=== PATIENT | male | born 1945 | race Caucasian/White ===

== ENCOUNTER 2018-12-13 13:28 | Inpatient (IN) | payer MEDICARE, SELFPAY ==
[2018-12-13 13:36] VITALS: BP 143/88; PULSE 73; RESP 18; TEMP 36.7; O2SAT 98; BMI 23.4
--- NOTE | 2018-12-13 14:00 | ED_ITS ---
HPI - Fall General Chief Complaint: Fall Stated Complaint: Fall,back pain and rt arm Time Seen by Provider: 12/13/18 13:51 Source: patient Mode of arrival: ambulatory Limitations: no limitations History of Present Illness HPI Narrative: Patient is a 73-year-old male here for evaluation of an injury that he sustained prior to arrival here in the emergency department. He stated that he was reaching up to pull the string on a fan to turn on the light where he stated that he lost his balance and fell back hitting his left side of his back on the corner of the bed. He is not on anticoagulation. He states that he did not hit his head or lose consciousness. He complains of pain along his back on the left side. Also has right shoulder pain. Related Data Allergies Allergy/AdvReac Type Severity Reaction Status Date / Time No Known Drug Allergies Allergy Verified 12/13/18 13:36 Review of Systems Constitutional Denies fatigue, Denies fever(s), Denies frequent falls and Denies headache(s) ENT Ears, Nose, Mouth, and Throat: Denies headache(s) Cardiovascular Denies chest pain, Denies edema, Denies palpitations and Denies dyspnea Respiratory Denies cough and Denies dyspnea Gastrointestinal Gastrointestinal: Denies abdominal pain, Denies nausea and Denies vomiting Genitourinary Denies dysuria Musculoskeletal Reports back pain and Reports arthralgias (Right shoulder) Integumentary/Breasts Comments: Bruising over his left flank Neurologic Denies behavioral changes, Denies frequent falls and Denies headache(s) Psychiatric Denies behavioral changes Endocrine Denies fatigue and Denies palpitations Hematologic/Lymphatic Denies easy bleeding and Denies easy bruising Allergic/Immunologic Denies urticaria Exam Initial Vital Signs Initial Vital Signs: Vital Signs Temperature 98.1 F 12/13/18 13:36 Pulse Rate 73 12/13/18 13:36 Respiratory Rate 18 12/13/18 13:36 Blood Pressure 143/88 H 12/13/18 13:36 Pulse Oximetry 98 12/13/18 13:36 Const General: cooperative, healthy appearing, well developed, well groomed and No acute distress Orientation: alert, awake and oriented x3 HENMT Head: normal to inspection and normocephalic Resp Effort & Inspection: normal respiratory effort Auscultation: clear to auscultation bilaterally Cardio Rate: regular rate Rhythm: regular rhythm Pulses: radial pulses present GI Inspection: non-distended Palpation: soft, No firm and No tender Back/Spine/Pelvis Other: Patient with a 10 cm irregular bruise over his left flank. No breaks in the skin. Does have crepitus underlying the area. Skin Other: Bruising over his left flank Neuro General: alert, awake and oriented x3 Extrem General: normal to inspection and capillary refill normal Psych Appearance: grossly normal and well kempt [facility] Medical History Healthy adult (Acute) Social History Smoking Status: Former smoker Social History Smoking Status: Former smoker Scores GCS Kali coma scale eye opening: Spontaneous Kali coma scale verbal response: Orientated Kali coma scale motor response: Obey commands [place] coma scale total score: 15 Nexus Score for C-Spine Focal Neurologic deficit present: No Midline spinal tenderness present: No Altered level of conciousness present: No Intoxication present: No Distracting Injury Present: No Nexus Criteria for C-spine: 0 Course Orders Ordered: ED Orders 12/13/18 14:15 Complete Blood Count AUTO DIFF Stat Comprehensive Metabolic Panel Stat Lipase Stat Partial Thromboplastin Time Stat Prothrombin Time INR Stat 12/13/18 14:33 XR shoulder RT min 2V Stat 12/13/18 14:50 CT chest abd pel w con Stat Discontinued Medications Sodium Chloride (Normal Saline 0.9%) 1,000 mls @ 1,000 mls/hr IV BOLUS ONE Stop: 12/13/18 15:04 Last Admin: 12/13/18 15:12 Dose: 1,000 mls/hr Vital Signs - 8 hr 12/13/18 13:36 Temperature 98.1 F Pulse Rate 73 Respiratory Rate 18 Blood Pressure 143/88 H Pulse Oximetry 98 MDM - Fall Lab Data Attestation: I reviewed the patient's lab results. Result diagrams: 12/13/18 14:15 12/13/18 14:15 Lab Results 12/13/18 12/13/18 12/13/18 Range/Units 14:15 14:15 14:15 WBC 13.6 H (4.5-11.0) X10^3/uL RBC 5.07 (4.5-5.9) X10^6/uL Hgb 16.6 (13.5-17.5) g/dL Hct 49.0 (41-53) % MCV 96.6 (80-100) fL MCH 32.7 (26-34) PG MCHC 33.9 (30-36) % RDW 13.2 (11.6-14.8) % Plt Count 165 (150-400) X10^3/uL Neut % (Auto) 89.2 H (50-75) % Lymph % (Auto) 4.4 L (25-40) % [place] % (Auto) 6.2 (3-14) % Eos % (Auto) 0.0 L (2-4) % Baso % (Auto) 0.2 (0-2) % Neut # (Auto) 03612 H (1530-6391) /uL Lymph # (Auto) 600 L (9387-6222) /uL [place] # (Auto) 800 (0-900) /uL Eos # (Auto) 0 (0-450) /uL Baso # (Auto) 0 (0-100) /uL PT 11.2 (10.1-12.7) SECONDS INR 1.0 (0.9-1.3) APTT 29 (26.4-36.2) SECONDS Sodium 139 (137-145) mmol/L Potassium 4.2 (3.4-5.1) mmol/L Chloride 102 (98-107) mmol/L Carbon Dioxide 28 (22-32) mmol/L BUN 24 H (9-20) mg/dL Creatinine 1.10 (0.66-1.25) mg/dL Estimated GFR > 60.0 (>60) mL/min BUN/Creatinine Ratio 21.8 (6-22) Glucose 147 H (80-110) mg/dL Calcium 9.2 (8.4-10.2) mg/dL Total Bilirubin 0.5 (0.2-1.3) mg/dL AST 32 (17-59) IU/L ALT 35 (21-72) IU/L Alkaline Phosphatase 66 (38-126) U/L Total Protein 7.5 (6.3-8.2) g/dL Albumin 4.4 (3.5-5.0) g/dL Globulin 3.1 (1.7-4.1) g/dL Albumin/Globulin Ratio 1.4 (1.0-2.8) Lipase 60 (23-300) U/L Urine Dip Bedside Urine Glucose Negative Bedside Urine Bilirubin - Negative Bedside Urine Ketone - Negative Urine Specific [place] 1.015 Bedside Urine Occult Blood - Negative Bedside Urine pH 6.0 Bedside Urine Protein - Negative Bedside Urine Urobilinogen - Negative Bedside Urine Nitrite - Negative Bedside Urine Leukocytes - Negative Esterase Imaging Data X-ray shoulder: Radiologist's impression: Patient: Luis A Kimbrough#: [id number] : 6Acct:[id number] Age/Sex: 73 / MDate of Service: 12/13/18 Loc: ED Accession Number: [id number] Procedure: XR shoulder RT min 2V Ordering Provider: Hill Nielson D.O. PROCEDURE: XR SHOULDER RT MIN 2V INDICATIONS: Pain after fall TECHNIQUE: 2 views of the shoulder were acquired. COMPARISON: None. FINDINGS: Bones: No fractures or dislocations. No suspicious bony lesions. Visualized ribs appear intact. Mild glenohumeral and acromioclavicular joint osteoarthritis. Soft tissues: No suspicious soft tissue calcifications. IMPRESSION: No fracture. No osseous lesion. If symptoms and/or clinical suspicion for pathology persists, further assessment with repeat radiographs (7-10 days) or advanced imaging (e.g. CT, MRI or bone scan) may be helpful. Dictated by: Monse Muller MD, PhD on 12/13/2018 at 15:24 Approved by: Monse Muller MD, PhD on 12/13/2018 at 15:24 CT chest abdomen pelvis: Radiologist's impression: Report that I received over the phone Left-sided pneumothorax, left-sided hemothorax, left-sided 9,10,11,12 rib fractures MDM Narrative Medical decision making narrative: Patient not in any respiratory distress, did not want any pain medication. Right shoulder shows no signs of bony injury. Patient does have injuries to his left thorax. Patient was placed on 100% O2 by nasal cannula. The exact size of the pneumothorax was not express to me by the radiologist at the time of admission however I feel that it is less than 20%. Will hold on chest tube for now. Discussed the case with Dr. Villa with General surgery who will admit for further evaluation and treatment. Discuss the admission with the patient who expressed understanding and agreement. Discharge Plan Departure Patient Disposition: Admitted As Inpatient Clinical Impression: Pneumothorax on left, Hemothorax on left Multiple rib fractures Qualifiers: Encounter type: initial encounter Fracture type: closed Laterality: left Qualified Code(s): S22.42XA - Multiple fractures of ribs, left side, initial encounter for closed fracture Fall Qualifiers: Encounter type: initial encounter Qualified Code(s): W19.XXXA - Unspecified fall, initial encounter Contusion Qualifiers: Encounter type: initial encounter Contusion area: lower back Qualified Code(s): S30.0XXA - Contusion of lower back and pelvis, initial encounter Admit Date/Time: 12/13/18 15:57 Admit Provider: Shamika Villa
[2018-12-13 14:24] LABS: Add Manual Diff / Slide Review NO; Basophils Absolute Auto 0 /uL (0-100); Basophils Percent Auto 0.2 % (0-2); Eosinophils Absolute Auto 0 /uL (0-450); Hemoglobin 16.6 g/dL (13.5-17.5); Lymphocytes Absolute Auto 600 /uL (1100-4500); Lymphocytes Percent Auto 4.4 % (25-40); Mean Corpuscular HGB Conc 33.9 % (30-36); Mean Corpuscular Hemoglobin 32.7 PG (26-34); Mean Corpuscular Volume 96.6 fL (80-100); Monocytes Absolute Auto 800 /uL (0-900); Monocytes Percent Auto 6.2 % (3-14); Neutrophils Absolute Auto 12100 /uL (1500-7000); Neutrophils Percent Auto 89.2 % (50-75); Platelet Count 165 X10^3/uL (150-400); Red Blood Cell Count 5.07 X10^6/uL (4.5-5.9); Red Cell Distribution Width 13.2 % (11.6-14.8); White Blood Cell Count 13.6 X10^3/uL (4.5-11.0)
--- NOTE | 2018-12-13 14:33 | DI.RAD.S_ITS ---
PROCEDURE: XR SHOULDER RT MIN 2V INDICATIONS: Pain after fall TECHNIQUE: 2 views of the shoulder were acquired. COMPARISON: None. FINDINGS: Bones: No fractures or dislocations. No suspicious bony lesions. Visualized ribs appear intact. Mild glenohumeral and acromioclavicular joint osteoarthritis. Soft tissues: No suspicious soft tissue calcifications. IMPRESSION: No fracture. No osseous lesion. If symptoms and/or clinical suspicion for pathology persists, further assessment with repeat radiographs (7-10 days) or advanced imaging (e.g. CT, MRI or bone scan) may be helpful. Dictated by: Monse Muller MD, PhD on 12/13/2018 at 15:24 Approved by: Monse Muller MD, PhD on 12/13/2018 at 15:24
[2018-12-13 14:35] LABS: Prothrombin Time 11.2 SECONDS (10.1-12.7)
[2018-12-13 14:38] LABS: PTT Partial Thromboplastin Tim 29 SECONDS (26.4-36.2)
[2018-12-13 14:40] LABS: Alanine Aminotransferase 35 IU/L (21-72); Albumin 4.4 g/dL (3.5-5.0); Albumin Globulin Ratio 1.4 (1.0-2.8); Alkaline Phosphatase 66 U/L (38-126); Aspartate Aminotransferase 32 IU/L (17-59); BUN Creatinine Ratio 21.8 (6-22); Bilirubin Total 0.5 mg/dL (0.2-1.3); Blood Urea Nitrogen 24 mg/dL (9-20); Calcium 9.2 mg/dL (8.4-10.2); Carbon Dioxide 28 mmol/L (22-32); Chloride 102 mmol/L (98-107); Estimated Glomerular Filt Rate > 60.0 mL/min (>60); Globulin 3.1 g/dL (1.7-4.1); Glucose 147 mg/dL (80-110); HEMOLYSIS 19 (0-50); Lipase 60 U/L (23-300); Potassium 4.2 mmol/L (3.4-5.1); Sodium 139 mmol/L (137-145); Total Protein 7.5 g/dL (6.3-8.2)
--- NOTE | 2018-12-13 14:50 | DI.CT.S_ITS ---
PROCEDURE: CT CHEST ABD PEL W CON INDICATIONS: fall Left low back hematoma with crepitus TECHNIQUE: After the administration of intravenous contrast, 5 mm thick sections acquired from the lung apices to the symphysis. 2.5 mm thick coronal and sagittal reformats were acquired. Additional 7 mm thick coronal maximum intensity projection (MIP) reformats acquired through the lungs. Optional 10-minute delayed imaging may be performed from the kidneys to the bladder. For radiation dose reduction, the following was used: automated exposure control, adjustment of mA and/or kV according to patient size. COMPARISON: [facility], CR, XR SHOULDER RT MIN 2V, 12/13/2018, 14:39. FINDINGS: Image quality: CHEST: Lungs: There is trace left apical pneumothorax. Mild pulmonary contusion and atelectasis in the left lower lobe. There is a small left hemothorax. Central and peripheral airways appear patent and normal in caliber. Mediastinum: No mediastinal hematomas. Heart size is normal. No pericardial effusion. Thoracic aorta and pulmonary arteries demonstrate normal size and enhancement. No mediastinal or hilar adenopathy. Esophagus is normal in caliber. No hiatal hernia. Chest wall: There are slightly displaced left ninth, 10th, 11th and 12th rib fractures. There is subcutaneous emphysema in the left posterior and lateral lower chest wall/flank. No axillary or supraclavicular adenopathy. Thyroid gland is normal. ABDOMEN: Solid organs: There are multiple small indeterminate hepatic hypodensities. Liver is normal in size and enhancement, without lacerations. Gallbladder is normal. Biliary system is non-dilated. Pancreas enhances normally, without transection. Spleen is normal in size and enhancement, without lacerations. No adrenal hematomas. Both kidneys enhance normally, without hydronephrosis or lacerations. Peritoneum and bowel: No free fluid or air. Unenhanced bowel loops demonstrate normal wall thickness and caliber. Nodes and vessels: No retroperitoneal or mesenteric adenopathy. Aorta and inferior vena cava are normal in size and enhancement. Miscellaneous: No ventral hernias. PELVIS: Genitourinary: The bladder is distended. Bladder wall thickness is normal. Miscellaneous: No inguinal hernias or adenopathy. Bones: Pelvic ring and hip joints appear intact. No vertebral compression fractures. There is scoliosis. Degenerative changes are noted in lower thoracic and lumbar spine. IMPRESSION: 1. Trace left apical pneumothorax. 2. Small left hemothorax. 3. Multiple left rib fractures involving the left ninth, 10th, 11th and 12th ribs. There is subcutaneous emphysema in the left lower posterior chest wall/flank. 4. Multiple hepatic hypodensities are most likely cysts although many lesions are too small to further characterize, therefore, considered indeterminate. The result was discussed with Dr. Tata THOMAS prior to dictation. Dictated by: Jonatan Limon M.D. on 12/13/2018 at 15:31 Approved by: Jonatan Limon M.D. on 12/13/2018 at 18:03
[2018-12-13] MEDS: SODIUM CHLORIDE 0.9% 1,000 ML 1000 ML IV (15:12)
--- NOTE | 2018-12-13 15:15 | PC.NURSE ---
pt with tenderness to left back rib cage, Toston shaped reddened area, with swelling. On palpation of area, crepitus felt around area.
[2018-12-13 16:12] VITALS: BMI 23.4
--- NOTE | 2018-12-13 16:36 | PM.HP.1 ---
History of Present Illness Date Patient Seen: 12/13/18 Time Patient Seen: 16:36 Chief complaint: Fall,back pain and rt arm Narrative: Luis A is a pleasant and active 73-year-old gentleman who was adjusting a ceiling fan in his home earlier today when he sustained a fall. He says he lost his balance and fell with his left side onto a wooden bed frame that was about 20 in off the floor. He says it hurts so terribly that he did not think he was going to be able to get up. He said no other parts of his body sustained injury. He did not hit his head and he did not lose consciousness. He denies any neck pain. He denies any back pain. He says he feels much better than he did 3 hr ago when the accident occurred. He is concerned about how he will sleep tonight. He does not take any medication at home but has recently been using a marijuana formulation that relaxes him and helped him to get good sleep. He says he has struggled with getting sleep for the last 25 years if not longer. He denies any difficulty breathing right now. He says his pain is not unbearable but it is definitely sharp and his whole body feels sore. He is also concerned about a pain in his right shoulder. He says this is not a new occurrence. For some time now, when he lies on his right shoulder he feels a stabbing sensation and he gets a pain shooting through his armpit area and toward his back. He would like to have that addressed in some fashion while he is here. He tells me that he has had bone spurs removed in the past and he wonders if it might be a bone spur. Patient History Medical History Healthy adult (Acute) Social History Smoking Status: Former smoker Family & Social History Safety & Behavioral: Feels Safe in Current Yes Environment Been Physically Hurt or No Threatened By a Person Tobacco & Substance use: Smoking Status Former smoker Substance Use Type marijuana Meds Home Medications Medication Instructions Recorded Confirmed Type Bone-Up 1 tab PO BID 12/13/18 12/13/18 History Thymus Multivitamin 1 tab PO BID 12/13/18 12/13/18 History glucosamine-chondroitin 1 tab PO BID 12/13/18 12/13/18 History mv,Ca,bpd-rrmg-OG-lycopene 1 tab PO BID 12/13/18 12/13/18 History [Spectravite Men's] Allergies Allergy/AdvReac Type Severity Reaction Status Date / Time No Known Drug Allergies Allergy Verified 12/13/18 13:36 Review of Systems Review of Systems All systems reviewed & are unremarkable except as noted in HPI and below Exam Vital Signs (past 8 hours): - 12/13/18 13:36 Temperature 98.1 F Pulse Rate 73 Respiratory Rate 18 Blood Pressure 143/88 H Pulse Oximetry 98 Oxygen Delivery Method Room Air Narrative Exam Narrative: Well-nourished well-developed gentleman who is sitting up on the stretcher with some left-sided chest splinting. He is holding his left arm on the stretcher to keep his left chest from moving. He acts much younger than his stated age. HEENT: Normocephalic and atraumatic, pupils equal round and reactive to light accommodation with anicteric sclera no midface instability no evidence of midface trauma no bruising. Neck: Nontender to palpation. No bruising. No significantly enlarged cervical or supraclavicular adenopathy Lungs: Clear on the right side. On the left there is a 10-12 cm hematoma developing in the left flank. In this region there is also some very slight crepitance and significant tenderness to palpation. He does have air movement on the left side but there is some decreased with comparison to the right. No wheezing and no rales on either side. Abdomen: Soft, nontender, active bowel sounds. Extremities: All are warm and well perfused. Examination of his hands is notable for 2 bloody lesions at the base of each thumb. He says he developed these last weekend while raking the yd ?at the club?. He says he forgot his gloves that day. They are not hurting him and he says they are of no consequence. 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 Significantly decreased range of motion on the left side secondary to chest pain. Decreased range of motion in the right shoulder due to pain with any movement. He can't localize it to abduction or adduction but he says he has a shooting pain through his axilla. Easily palpable pulses. Objective Labs Result Diagrams: 12/13/18 14:15 12/13/18 14:15 Labs: Laboratory Results - last 24 hr 12/13/18 12/13/18 12/13/18 14:15 14:15 14:15 WBC 13.6 H RBC 5.07 Hgb 16.6 Hct 49.0 MCV 96.6 MCH 32.7 MCHC 33.9 RDW 13.2 Plt Count 165 Neut % (Auto) 89.2 H Lymph % (Auto) 4.4 L [place] % (Auto) 6.2 Eos % (Auto) 0.0 L Baso % (Auto) 0.2 Neut # (Auto) 97591 H Lymph # (Auto) 600 L [place] # (Auto) 800 Eos # (Auto) 0 Baso # (Auto) 0 PT 11.2 INR 1.0 APTT 29 Sodium 139 Potassium 4.2 Chloride 102 Carbon Dioxide 28 BUN 24 H Creatinine 1.10 Estimated GFR > 60.0 BUN/Creatinine Ratio 21.8 Glucose 147 H Calcium 9.2 Total Bilirubin 0.5 AST 32 ALT 35 Alkaline Phosphatase 66 Total Protein 7.5 Albumin 4.4 Globulin 3.1 Albumin/Globulin Ratio 1.[address] scan of the chest abdomen and pelvis as well as right shoulder films were personally reviewed. The CT shows multiple left-sided rib fractures with a very small hemothorax and a very small pneumothorax. Lungs are both well inflated. Right shoulder x-ray does not show any obvious bony lesion. Assessment & Plan Assessment & Plan narrative: 73-year-old gentleman status post fall. We will admit him overnight for observation and pain control, monitor his oxygen saturation overnight and repeat his chest x-ray in the morning. He would very much like to have his right shoulder addressed during this visit. I have expressed to him that this is the issue that will be better handled in the outpatient setting but we can start the referral process through the office.
[2018-12-13 17:05] VITALS: BP 120/77; PULSE 57; RESP 18; TEMP 36.6; O2SAT 94
[2018-12-13] MEDS: DEXTROSE 5%-0.45% NS 1,000 ML 75 ML IV (17:27)
[2018-12-13] MEDS: OXYCODONE/ACETAMINOPHEN 5/325 TABLET 1 TAB PO ×2 (17:27→21:37)
[2018-12-13 21:30] VITALS: BP 117/68; PULSE 55; RESP 18; TEMP 37.1; O2SAT 96
[2018-12-13] MEDS: GABAPENTIN 300 MG CAPSULE PO (21:37)
[2018-12-14] VITALS: BP 109/65; PULSE 52; RESP 18; TEMP 36.6; O2SAT 97
--- NOTE | 2018-12-14 | DI.RAD.S_ITS ---
PROCEDURE: XR CHEST 2V INDICATIONS: pneumothorax, pain, rib fractures TECHNIQUE: 2 views of the chest were acquired. COMPARISON: [facility], CT, CT CHEST ABD PEL W CON, 12/13/2018, 14:45. FINDINGS: Surgical changes and devices: None. Lungs and pleura: No acute consolidation. Scattered subsegmental atelectasis and/or scarring. No pleural effusions or radiographically visible pneumothorax. Mediastinum: Mediastinal contours are normal. Heart size is normal. Bones and chest wall: Rib fractures better visualized on the comparison CT IMPRESSION: No acute consolidation. Scattered scarring/atelectasis. Left-sided rib fractures and tiny left sided pneumothorax is better seen on the comparison CT. Dictated by: Stephen Rivas M.D. on 12/14/2018 at 8:56 Approved by: Stephen Rivas M.D. on 12/14/2018 at 9:04
[2018-12-14] MEDS: OXYCODONE/ACETAMINOPHEN 5/325 TABLET 1 TAB PO (04:39)
[2018-12-14 04:41] VITALS: BP 114/68; PULSE 54; RESP 18; TEMP 36.7; O2SAT 95
[2018-12-14] MEDS: DEXTROSE 5%-0.45% NS 1,000 ML 75 ML IV (06:12)
[2018-12-14 09:00] VITALS: BP 126/75; PULSE 60; RESP 18; TEMP 37.1; O2SAT 98
--- NOTE | 2018-12-14 10:21 | PM.DS.1 ---
History of Present Illness Date Patient Seen: 12/14/18 Time Patient Seen: 10:21 Chief complaint: Fall,back pain and rt arm Narrative: 73-year-old male who presented the emergency department after falling while fixing of ceiling fan striking his left flank and ribs on a bed frame. He had immediately on set of significant pain and mild shortness of breath. Examination evaluation were consistent with left chest wall contusion and multiple nondisplaced rib fractures. He had a small rim pneumothorax as well. He was admitted for ongoing pain control and observation. Discharge Providers Date of admission: 12/13/18 15:57 Discharge Date: 12/14/18 Consults: 12/13/18 17:03 Consult to Discharge Planning Routine Comment: Consult to Respiratory Therapy Evaluate & Treat Comment: Chest trauma; IS please Physician Instructions: Evaluate and treat Discharge provider: Blaine Harris MD Summary Discharge Diagnosis: Nondisplaced fractures of left ribs 9, 10, 11, and 12 Small left apical rim pneumothorax secondary to rib fractures, subsequently resolved Small inconsequential left hemothorax secondary to rib fractures, subsequently resolved Chronic right shoulder pain of unclear etiology but no evidence of bony injury on x-ray History of tobacco use History of left shoulder surgery 20 years ago Acute left flank hematoma with subcutaneous emphysema secondary to rib fractures, resolving at discharge Hospital Course: Patient was admitted from the emergency department as above. He remained afebrile and hemodynamically stable throughout his stay. He is tolerating a regular diet. He is ambulating unassisted. Denies any chest pain or shortness of breath. His room-air saturations have been stable with no need for oxygen. He is performing incentive spirometry but does show evidence of some slight splinting on the left side. The left flank hematoma and subcutaneous emphysema are resolving at discharge at her otherwise clinically insignificant. His pain is currently well controlled with oxycodone and gabapentin. Complete radiographic and clinical evaluation including CT scan of the chest, abdomen, and pelvis showed no evidence of any other injuries. He had a small rim pneumothorax and small hemothorax seen on CT scan only. Follow-up chest x-ray on hospital day 1 showed no evidence of either. Because the patient is stable and his pain is well-controlled with adequate respiratory function he is discharged home on hospital day 1. He will maintain his medications as above. We discussed the nature and pathophysiology of his rib fractures. He understands that they will take some time to heal. In the interim he should refrain from heavy lifting or operating machinery such as driving. I have discussed this with him. He informs me that he intends to drive regardless which I clearly indicated him is against my medical advice. He is quite concerned about his chronic right shoulder pain which predates his current injuries and event by many years. He has been offered orthopedic surgery referral as an outpatient. Referral has been initiated per his request. He will follow up in the surgery clinic in 2 weeks, but he understands to call or return sooner if he has any issues with progressive pain or shortness of breath. He does not have a primary care physician to follow up with as well. I encouraged him to establish care with such. All questions were otherwise answered to his satisfaction, and he voiced understanding. Status at Discharge Cognitive/behavioral status at discharge: oriented Functional status at discharge: independent ambulation Overall status at discharge: patient is progressing back to baseline Time Spent with Patient Less than 30 minutes Time spent discussing smoking cessation with patient: 3 to 10 minutes Exam Vital Signs (past 8 hours): - 12/14/18 04:41 12/14/18 09:00 Temperature 98.0 F 98.7 F Pulse Rate 54 L 60 Respiratory Rate 18 18 Blood Pressure 114/68 126/75 Pulse Oximetry 95 98 Oxygen Delivery Method Room Air Oxygen Flow Rate 0 Narrative Exam Narrative: Well-nourished well-developed thin male in no acute distress sitting comfortably in bedside chair at the time of my visit this morning. He is alert oriented x3. He is in good spirits. No fevers or tachycardia as per above since admission. Blood pressure is normal. Adequate urine output. Room-air saturation 98%. He is not tachypneic. Sclera nonicteric Neck is supple without lymphadenopathy Chest clear to auscultation without crackles or wheezes. He has full breath sounds throughout both bases and apices. Left chest wall contusion is stable with no evidence of skin necrosis or skin breakdown. Small hematoma under the contusion is stable. I appreciate no subcutaneous emphysema this morning on examination. Extremities show no clubbing, cyanosis, or edema. No other deformities appreciated. Objective Labs Result Diagrams: 12/13/18 14:15 12/13/18 14:15 Labs: Laboratory Results - last 24 hr 12/13/18 12/13/18 12/13/18 14:15 14:15 14:15 WBC 13.6 H RBC 5.07 Hgb 16.6 Hct 49.0 MCV 96.6 MCH 32.7 MCHC 33.9 RDW 13.2 Plt Count 165 Neut % (Auto) 89.2 H Lymph % (Auto) 4.4 L [place] % (Auto) 6.2 Eos % (Auto) 0.0 L Baso % (Auto) 0.2 Neut # (Auto) 02312 H Lymph # (Auto) 600 L [place] # (Auto) 800 Eos # (Auto) 0 Baso # (Auto) 0 PT 11.2 INR 1.0 APTT 29 Sodium 139 Potassium 4.2 Chloride 102 Carbon Dioxide 28 BUN 24 H Creatinine 1.10 Estimated GFR > 60.0 BUN/Creatinine Ratio 21.8 Glucose 147 H Calcium 9.2 Total Bilirubin 0.5 AST 32 ALT 35 Alkaline Phosphatase 66 Total Protein 7.5 Albumin 4.4 Globulin 3.1 Albumin/Globulin Ratio 1.4 Lipase 60 Chest x-ray today shows no evidence of residual pneumothorax or hemothorax. Rib fractures are stable. No subcutaneous air. Discharge Plan Discharge Plan Patient Disposition: Home Discharge comment: Referral to [facility] orthopedic surgeons has been initiated for your right shoulder pain. They will contact you to schedule an appointment. Discharge Med Rec/Prescriptions Prescriptions: New oxycodone-acetaminophen 5-325 mg Tablet 1 tab PO Q3HR PRN (Reason: Pain, Moderate (4-6)) Qty: 40 RF: 0 docusate sodium 100 mg Capsule 100 mg PO DAILY Qty: 14 RF: 1 gabapentin [Neurontin] 300 mg Capsule 300 mg PO BID Qty: 60 RF: 0 Continued Bone-Up 1 tab PO BID RF: 0 glucosamine-chondroitin 1 tab PO BID RF: 0 Spectravite Men's 8 mg iron- 200 mcg-600 mcg Tablet 1 tab PO BID RF: 0 Thymus Multivitamin 1 tab PO BID RF: 0 Follow up/Referrals: Shamika Villa MD [Physician] - 01/01/19 9:30 am Provider Discharge Instructions Diet: Diet as Tolerated Activity: No driving while taking opioid pain medication May walk as much as desired May ride in vehicle May climb stairs No lifting more than 10 lb until further notice Cold/Heat Therapy: May apply ice pack and/or heating pad to affected area as needed for comfort Other treatments: Perform incentive spirometry as directed every hour while awake Call or return to emergency department for progressive chest pain or shortness of breath Skin/Wound/Dressing Care Report to your healthcare provider any signs of infection, such as:: chills, fever, night sweats and increased pain Dressing: None needed Discharge Data Attending Provider: Shamika Villa Admit Date/Time: 12/13/18 15:57
[2018-12-14] MEDS: DOCUSATE 100 MG CAPSULE PO (11:28)
[2018-12-14] MEDS: GABAPENTIN 300 MG CAPSULE PO (11:28)
--- NOTE | 2018-12-14 12:03 | PC.NURSE ---
DISCHARGE TO HOME WITH RX- FULLY EXPLAINED TO PTS SATISFACTION WITH NO FURTHER QUESTIONS-
== END 2018-12-14 12:03 | disposition home or self-care (01) | DRG 183 ==
LOC: ED 15:49 → AC 12-14 07:02
PROVIDERS: Admitting Provider Surgery; Emergency Provider Emergency Medicine; Visit Provider Surgery
DX: S22.42XA Multiple fractures of ribs, left side, initial encounter for closed fracture (principal); S27.2XXA Traumatic hemopneumothorax, initial encounter; S20.212A Contusion of left front wall of thorax, initial encounter; W18.00XA Striking against unspecified object with subsequent fall, initial encounter; Y92.009 Unspecified place in unspecified non-institutional (private) residence as the place of occurrence of the external cause; M25.511 Pain in right shoulder; Z87.891 Personal history of nicotine dependence
CPT/HCPCS: 36591; 71046; 71260; 73030; 74177; 80053; 81003; 83690; 85025; 85610; 85730; 94762; 96360; 96361; 99220; 99238; 99284; 99285; G0378; Q9967

== ENCOUNTER 2021-06-05 01:03 | Emergency (ER) | payer MEDICARE, SELFPAY ==
[2021-06-05 01:05] VITALS: BP 156/82; PULSE 73; RESP 16; TEMP 36.6; O2SAT 95; BMI 23.7
--- NOTE | 2021-06-05 01:35 | ED.EAR ---
HPI - Ear Problem General Chief complaint: Ear Stated complaint: left ear pain/body pain Time Seen by Provider: 06/05/21 01:05 Source: patient Mode of arrival: Ambulatory Limitations: no limitations History of Present Illness HPI Narrative: 75M nonsmoker with noncontributory medical history presents with a chief complaint of increasing left external ear pain over the course of the day. 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 He developed some difficulty with discomfort in his ear earlier today and went to a clinic earlier and was given a prescription for ofloxacin. He has no fever or chills. He denies any drainage or decreased hearing. He's had no trouble breathing or swallowing. Related Data Home Medications Medication Instructions Recorded Confirmed Bone-Up 1 tab PO BID 12/13/18 01/01/19 Thymus Multivitamin 1 tab PO BID 12/13/18 12/13/18 glucosamine-chondroitin 1 tab PO BID 12/13/18 01/01/19 multivit,Ca,min-iron 8 mg-folic 1 tab PO BID 12/13/18 01/01/19 acid 200 mcg-lycopene 600 mcg tablet (Spectravite Men's) Previous Rx's Medication Instructions Recorded docusate sodium 100 mg capsule 100 mg PO DAILY #14 cap 12/14/18 gabapentin 300 mg capsule 300 mg PO BID #60 cap 12/14/18 (Neurontin) oxycodone-acetaminophen 5 mg-325 1 tab PO Q3HR PRN #40 tab 12/14/18 mg tablet hydrocodone 5 mg-acetaminophen 325 1 tab PO Q4-6H PRN #10 tab 06/05/21 mg tablet Allergies Allergy/AdvReac Type Severity Reaction Status Date / Time No Known Drug Allergies Allergy Verified 01/01/19 10:13 Review of Systems Review of Systems Narrative: GENERAL: Denies chills, fatigue, malaise, fever, sweats. HEENT: See HPI RESPIRATORY: Denies dyspnea, cough, wheezing, hemoptysis, sputum. CARDIOVASCULAR: Denies chest pain, palpitations, orthopnea, edema, GASTROINTESTINAL: Denies nausea, vomiting, abdominal pain, diarrhea, constipation, melena. : Denies dysuria, frequency, incontinence, hematuria, urinary retention. MUSCULOSKELETAL: denies weakness, joint pain, or bony pain SKIN: Denies rash, skin lesions, or other NEUROLOGIC: Denies weakness, headache, numbness, change in speech, confusion, seizures, incoordination. PSYCHIATRIC: No concerning psychosocial issues. 12 point review of systems is negative except for those stated above Patient History Medical History Healthy adult Social History household members: none Smoking Status: Never smoker alcohol intake: never Smoking Status: Never smoker Substance Use Type: does not use Exam Narrative Exam Narrative: GEN: AOx3 and in mild distress EYES: Pupils are equal, round, and reactive to light and accommodation. Extraoccular muscles are intact bilaterally. There is no subconjunctival hemorrhage or exudate. ENT: Left EAC with moderate edema and erythema, no significant drainage or blood. TM is clear with minimal scarring. No bulging or erythema of TM, no evidence of perforation CHEST: Lungs are clear to auscultation bilaterally and free of wheezes, rales, or rhonchi. Heart rate is regular rhythm, there are no murmurs, clicks, rubs, or gallops. There is no chest wall tenderness. ABD: Abdomen is soft and nontender. There is no guarding or rebound. Bowel sounds are normal in all 4 quadrants. There is no mass or organomegaly. EXT: Full painless ROM of all extremities with no loss of sensation or strength. SKIN: Warm, pink, and dry. No erythema or rash Initial Vital Signs Initial Vital Signs: Vital Signs Temperature 98 F 06/05/21 01:05 Pulse Rate 73 06/05/21 01:05 Respiratory Rate 16 06/05/21 01:05 Blood Pressure 156/82 H 06/05/21 01:05 Pulse Oximetry 95 06/05/21 01:05 Course Orders Ordered: Discontinued Medications Hydrocodone Bitart/Acetaminophen (Hydrocodone/Acet 5/325 Prepack) 1 bottle MISC SEEINSTR ONE Stop: 06/05/21 01:49 Last Admin: 06/05/21 01:54 Dose: 1 bottle Documented by: JUAN DIEGO Vital Signs Vital signs: Vital Signs - 8 hr 06/05/21 01:05 Temperature 98 F Pulse Rate 73 Respiratory Rate 16 Blood Pressure 156/82 H Pulse Oximetry 95 Discharge Plan Departure Patient Disposition: Home Clinical Impression: Otitis externa Qualifiers: Otitis externa type: swimmer's ear Chronicity: acute Laterality: left Qualified Code(s): H60.332 - Swimmer's ear, left ear Instructions: DI for Otitis Externa Activity Restrictions/Additional Instructions: *You have been diagnosed with [otitis externa] *What to do: *Please continue to take your regular medications as directed. [x ] New medication prescriptions sent to your pharmacy: [[facility] ] [ ] New medication written as a paper prescription [ ] No new medications given *Please follow up with your primary care provider in 2-3 days, call for an appointment. Let them know you were seen in the Emergency Department and that we ask that you be seen in follow up. We will electronically transmit a record of today's note if your PCP is in our system *If you do not have a primary care provider please contact the [facility] Resource line at [phone]. They will ask some questions about your medical history and help get you set up with a doctor in the community. *Return to Emergency Department if you should have any new, worsening or concerning symptoms, such as [fever greater than 101 F, shaking chills, worsening pain, persistent vomiting or other bothersome symptoms] Prescriptions: New hydrocodone-acetaminophen 5-325 mg tablet 1 tab PO Q4-6H PRN (Reason: pain) Qty: 10 RF: 0 No Action Bone-Up 1 tab PO BID RF: 0 glucosamine-chondroitin 1 tab PO BID RF: 0 Spectravite Men's 8 mg iron- 200 mcg-600 mcg Tablet 1 tab PO BID RF: 0 Thymus Multivitamin 1 tab PO BID RF: 0 oxycodone-acetaminophen 5-325 mg Tablet 1 tab PO Q3HR PRN (Reason: Pain, Moderate (4-6)) Qty: 40 RF: 0 docusate sodium 100 mg Capsule 100 mg PO DAILY Qty: 14 RF: 1 gabapentin [Neurontin] 300 mg Capsule 300 mg PO BID Qty: 60 RF: 0 Referrals: Otto Quinn ND [Primary Care Provider] -
[2021-06-05] MEDS: HYDROCODONE/ACET 5/325 PREPACK 1 BOTTLE MISC (01:54)
== END 2021-06-05 01:55 | disposition home or self-care (01) ==
PROVIDERS: Emergency Provider Emergency Medicine; PCP Naturopath
DX: H60.332 Swimmer's ear, left ear (principal)
CPT/HCPCS: 99281; 99283